=== PATIENT | male | born 1980 | race Caucasian/White ===

== ENCOUNTER 2018-05-02 06:22 | Inpatient (IN) | payer BC ==
[2018-05-02] MEDS: BUPIVACAINE 0.25% (MPF) 30 ML INJ
[2018-05-02] MEDS ORDERED: metroNIDAZOLE 500 MG/100 ML NS IVPB (07:00)
[2018-05-02] MEDS ORDERED: CEFAZOLIN 1 GM INJ ×2 (07:00→09:33)
[2018-05-02] MEDS ORDERED: ROCURONIUM 50 MG INJ ×3 (07:00→10:49)
[2018-05-02 08:29] LABS: ADD MAN DIFF? NO
[2018-05-02] MEDS ORDERED: Metronidazole 500 MG in NS 100 ML IVPB (08:30)
[2018-05-02] MEDS ORDERED: AMPICILLIN/SULB 3 GM/NS (PMX) 100 ML IVPB ×2 (08:30→13:30)
[2018-05-02 08:31] LABS: WHITE BLOOD COUNT 8.5 10^3/ul (4.8-10.8)
[2018-05-02 08:31] LABS: BASOPHIL # 0.1 10^3/ul (0.0-0.1); BASOPHILS % 0.7 % (0.0-2.0); EOSINOPHILS # 0.1 10^3/ul (0.0-0.5); EOSINOPHILS % 1.5 % (0.0-7.0); HEMATOCRIT 43.1 % (42.0-52.0); HEMOGLOBIN 14.6 g/dl (14.0-18.0); LYMPHOCYTES # 3.5 10^3/ul (0.8-2.9); LYMPHOCYTES % 41.2 % (15.0-51.0); MEAN CORPUSCULAR HEMOGLOBIN 29.2 pg (29.0-33.0); MEAN CORPUSCULAR HGB CONC 33.9 g/dl (32.0-37.0); MEAN CORPUSCULAR VOLUME 86.2 fl (82.0-101.0); MEAN PLATELET VOLUME 10.5 fl (7.4-10.4); MONOCYTE # 0.5 10^3/ul (0.3-0.9); MONOCYTES % 5.5 % (0.0-11.0); NEUTROPHIL # 4.3 10^3/ul (1.6-7.5); NEUTROPHILS % 50.7 % (39.0-77.0); PLATELET COUNT 275 10^3/UL (140-415); RED CELL DISTRIBUTION WIDTH 12.8 % (11.5-14.5)
[2018-05-02 08:52] LABS: ALANINE AMINOTRANSFERASE 35 IU/L (13-69); ALBUMIN 4.2 g/dl (3.3-4.9); ALBUMIN/GLOBULIN RATIO 1.07; ALKALINE PHOSPHATASE 80 IU/L (42-121); ANION GAP 13 (8-16); ASPARTATE AMINO TRANSFERASE 26 IU/L (15-46); BILIRUBIN,INDIRECT 1.1 mg/dl (0-1.1); BILIRUBIN,TOTAL 1.1 mg/dl (0.2-1.3); BLOOD UREA NITROGEN 13 mg/dl (7-20); CALCIUM 9.2 mg/dl (8.4-10.2); CARBON DIOXIDE 25 mmol/L (21-31); CHLORIDE 110 mmol/L (97-110); CREATININE 0.66 mg/dl (0.61-1.24); GLUCOSE 100 mg/dl (70-220); POTASSIUM 4.2 mmol/L (3.5-5.1); SODIUM 144 mmol/L (135-144); TOTAL PROTEIN 8.1 g/dl (6.1-8.1)
[2018-05-02 09:01] LABS: INR 0.96; PROTIME 12.9 Sec (11.9-14.9)
[2018-05-02 09:02] LABS: PARTIAL THROMBOPLASTIN TIME 33.7 Sec (25.0-35.0)
[2018-05-02] MEDS ORDERED: GLYCOPYRROLATE 0.4 MG INJ (09:33)
[2018-05-02] MEDS ORDERED: PROPOFOL 20 ML (09:33)
[2018-05-02] MEDS ORDERED: NEOSTIGMINE 3 MG/3 ML SYRINGE (09:33)
[2018-05-02] MEDS ORDERED: DEXAMETHASONE 4 MG/ML 1 ML INJ (09:34)
[2018-05-02] MEDS ORDERED: FENTAnyl 50 MCG/ML VIAL (09:34)
[2018-05-02] MEDS ORDERED: ONDANSETRON 4 MG INJ (09:34)
[2018-05-02] MEDS ORDERED: MIDAZOLAM 1 MG/ML 2 ML INJ (09:34)
[2018-05-02] MEDS ORDERED: BUPIVACAINE 0.75%/DEXT (SPINAL) 2 ML INJ (09:49)
[2018-05-02] MEDS ORDERED: EPINEPHrine 1 MG INJ (09:49)
[2018-05-02] MEDS ORDERED: morphine SULFATE/PF (10 MG/10 ML) INJ (09:49)
[2018-05-02] MEDS ORDERED: MEPERIDINE 25 MG INJ IV (12:00)
[2018-05-02] MEDS ORDERED: ZOLPIDEM 5 MG TAB PO ×2 (12:00)
[2018-05-02] MEDS ORDERED: NALBUPHINE HCL (10 MG/1 ML) INJ IV (12:00)
[2018-05-02] MEDS ORDERED: ONDANSETRON 4 MG INJ IV (12:00)
[2018-05-02] MEDS ORDERED: IPRATROPIUM (NEB) 0.5 MG/2.5 ML AMP HHN (12:00)
[2018-05-02] MEDS ORDERED: EPHEDrine SULFATE 50 MG/5 ML SYG IV (12:00)
[2018-05-02] MEDS ORDERED: ALBUTEROL 0.083% (NEB) 2.5 MG/3 ML AMP HHN (12:00)
[2018-05-02] MEDS ORDERED: LABETALOL HCL 20MG INJ IV (12:00)
[2018-05-02] MEDS ORDERED: TRIMETHOBENZAMIDE 100 MG/ML VIAL IM ×3 (12:00)
[2018-05-02] MEDS ORDERED: NALOXONE (0.4 MG/ML) INJ IV ×2 (12:00)
[2018-05-02] MEDS ORDERED: HYDROmorphONE 0.5 MG/0.5 ML SYG IV ×2 (12:00)
[2018-05-02] MEDS ORDERED: HYDROmorphONE 1 MG/5 ML IV SYRINGE IV (12:00)
[2018-05-02] MEDS ORDERED: MIDAZOLAM 1 MG/ML 2 ML INJ IV (12:00)
[2018-05-02] MEDS ORDERED: HYDROCODONE/APAP (5/325) TAB PO (12:00)
[2018-05-02] MEDS ORDERED: DIPHENHYDRAMINE 50 MG INJ IV ×3 (12:00)
[2018-05-02] MEDS ORDERED: FENTAnyl 50 MCG/ML VIAL IV ×3 (12:00)
[2018-05-02] MEDS ORDERED: hydrALAzine 20 MG INJ IV (12:00)
[2018-05-02] MEDS ORDERED: METHYLENE BLUE 1% 10 ML INJ (12:29)
[2018-05-02] MEDS ORDERED: SUGAMMADEX SODIUM 200 MG/2 ML VIAL IV (13:00)
[2018-05-02] MEDS ORDERED: METOCLOPRAMIDE 10 MG INJ (13:02)
[2018-05-02] MEDS: ONDANSETRON 4 MG INJ IV (13:44)
[2018-05-02] MEDS: HYDROmorphONE 1 MG/5 ML IV SYRINGE IV ×2 (13:44→13:53)
[2018-05-02] MEDS ORDERED: HYDROmorphONE 0.2 MG/ML PCA (13:58)
[2018-05-02] MEDS: HYDROmorphONE 0.2 MG/ML PCA IV (14:06)
[2018-05-02] MEDS: SOD CHLORIDE 0.9% 1,000 ML IV ×2 (14:07→23:19)
[2018-05-02] MEDS: metroNIDAZOLE 500 MG/NS (PMX) 100 ML IVPB ×2 (14:41→21:13)
[2018-05-02 15:36] LABS: ADD MAN DIFF? NO
[2018-05-02 15:38] LABS: BASOPHILS % 0.3 % (0.0-2.0); EOSINOPHILS % 0.1 % (0.0-7.0); HEMATOCRIT 39.9 % (42.0-52.0); HEMOGLOBIN 13.5 g/dl (14.0-18.0); LYMPHOCYTES % 7.8 % (15.0-51.0); MEAN CORPUSCULAR HEMOGLOBIN 29.3 pg (29.0-33.0); MEAN CORPUSCULAR HGB CONC 33.8 g/dl (32.0-37.0); MEAN CORPUSCULAR VOLUME 86.6 fl (82.0-101.0); MEAN PLATELET VOLUME 10.3 fl (7.4-10.4); MONOCYTE # 0.4 10^3/ul (0.3-0.9); MONOCYTES % 3.1 % (0.0-11.0); NEUTROPHIL # 11.8 10^3/ul (1.6-7.5); NEUTROPHILS % 88.3 % (39.0-77.0); PLATELET COUNT 264 10^3/UL (140-415); RED BLOOD COUNT 4.61 10^6/ul (4.70-6.10); RED CELL DISTRIBUTION WIDTH 12.8 % (11.5-14.5)
[2018-05-02 15:38] LABS: WHITE BLOOD COUNT 13.4 10^3/ul (4.8-10.8)
[2018-05-02 15:58] LABS: ALANINE AMINOTRANSFERASE 47 IU/L (13-69); ALBUMIN 3.7 g/dl (3.3-4.9); ALBUMIN/GLOBULIN RATIO 1.02; ALKALINE PHOSPHATASE 72 IU/L (42-121); ANION GAP 11 (8-16); ASPARTATE AMINO TRANSFERASE 41 IU/L (15-46); BILIRUBIN,INDIRECT 0.8 mg/dl (0-1.1); BILIRUBIN,TOTAL 0.8 mg/dl (0.2-1.3); BLOOD UREA NITROGEN 10 mg/dl (7-20); CALCIUM 8.1 mg/dl (8.4-10.2); CARBON DIOXIDE 24 mmol/L (21-31); CHLORIDE 107 mmol/L (97-110); CREATININE 0.61 mg/dl (0.61-1.24); GLUCOSE 130 mg/dl (70-220); SODIUM 138 mmol/L (135-144); TOTAL PROTEIN 7.3 g/dl (6.1-8.1)
[2018-05-02] MEDS: AMPICILLIN/SULB 3 GM/NS (PMX) 100 ML IVPB ×2 (17:24→21:13)
[2018-05-03] MEDS: SOD CHLORIDE 0.9% 1,000 ML IV ×3 (01:00→19:56)
[2018-05-03] MEDS: HYDROmorphONE 0.2 MG/ML PCA IV (01:06)
[2018-05-03] MEDS: AMPICILLIN/SULB 3 GM/NS (PMX) 100 ML IVPB ×2 (03:34→08:56)
[2018-05-03 05:15] LABS: ADD MAN DIFF? NO
[2018-05-03] MEDS: metroNIDAZOLE 500 MG/NS (PMX) 100 ML IVPB ×3 (05:15→21:30)
[2018-05-03 05:28] LABS: BASOPHILS % 0.1 % (0.0-2.0); EOSINOPHILS % 0.1 % (0.0-7.0); HEMATOCRIT 37.4 % (42.0-52.0); HEMOGLOBIN 12.7 g/dl (14.0-18.0); LYMPHOCYTES # 1.8 10^3/ul (0.8-2.9); LYMPHOCYTES % 14.2 % (15.0-51.0); MEAN CORPUSCULAR HEMOGLOBIN 29.5 pg (29.0-33.0); MEAN PLATELET VOLUME 10.7 fl (7.4-10.4); MONOCYTE # 0.7 10^3/ul (0.3-0.9); MONOCYTES % 5.2 % (0.0-11.0); NEUTROPHIL # 10.4 10^3/ul (1.6-7.5); NEUTROPHILS % 79.9 % (39.0-77.0); PLATELET COUNT 272 10^3/UL (140-415); RED CELL DISTRIBUTION WIDTH 12.4 % (11.5-14.5)
[2018-05-03 05:44] LABS: ALANINE AMINOTRANSFERASE 44 IU/L (13-69); ALBUMIN 3.7 g/dl (3.3-4.9); ALBUMIN/GLOBULIN RATIO 1.02; ALKALINE PHOSPHATASE 64 IU/L (42-121); ANION GAP 13 (8-16); ASPARTATE AMINO TRANSFERASE 26 IU/L (15-46); BILIRUBIN,INDIRECT 1.4 mg/dl (0-1.1); BILIRUBIN,TOTAL 1.4 mg/dl (0.2-1.3); BLOOD UREA NITROGEN 8 mg/dl (7-20); CALCIUM 8.6 mg/dl (8.4-10.2); CARBON DIOXIDE 26 mmol/L (21-31); CHLORIDE 105 mmol/L (97-110); CREATININE 0.62 mg/dl (0.61-1.24); GLUCOSE 133 mg/dl (70-220); POTASSIUM 4.1 mmol/L (3.5-5.1); SODIUM 140 mmol/L (135-144); TOTAL PROTEIN 7.3 g/dl (6.1-8.1)
[2018-05-03] MEDS: ONDANSETRON 4 MG INJ IV (17:56)
[2018-05-04] MEDS: HYDROmorphONE 0.2 MG/ML PCA IV (05:01)
[2018-05-04] MEDS: SOD CHLORIDE 0.9% 1,000 ML IV ×2 (05:19→15:45)
[2018-05-04] MEDS: metroNIDAZOLE 500 MG/NS (PMX) 100 ML IVPB ×3 (05:25→21:18)
[2018-05-04] MEDS: ONDANSETRON 4 MG INJ IV (15:30)
[2018-05-04] MEDS: KETOROLAC 30 MG INJ IV (15:30)
[2018-05-05] MEDS: SOD CHLORIDE 0.9% 1,000 ML IV (01:52)
[2018-05-05] MEDS: metroNIDAZOLE 500 MG/NS (PMX) 100 ML IVPB ×3 (05:30→21:29)
[2018-05-05 06:11] LABS: ADD MAN DIFF? NO
[2018-05-05 06:21] LABS: BASOPHIL # 0.1 10^3/ul (0.0-0.1); BASOPHILS % 0.6 % (0.0-2.0); EOSINOPHILS # 0.2 10^3/ul (0.0-0.5); EOSINOPHILS % 1.5 % (0.0-7.0); HEMOGLOBIN 13.5 g/dl (14.0-18.0); LYMPHOCYTES # 2.6 10^3/ul (0.8-2.9); LYMPHOCYTES % 24.7 % (15.0-51.0); MEAN CORPUSCULAR HEMOGLOBIN 29.1 pg (29.0-33.0); MEAN CORPUSCULAR HGB CONC 33.8 g/dl (32.0-37.0); MEAN CORPUSCULAR VOLUME 86.2 fl (82.0-101.0); MEAN PLATELET VOLUME 10.6 fl (7.4-10.4); MONOCYTE # 0.7 10^3/ul (0.3-0.9); MONOCYTES % 6.3 % (0.0-11.0); NEUTROPHIL # 6.9 10^3/ul (1.6-7.5); NEUTROPHILS % 66.4 % (39.0-77.0); PLATELET COUNT 299 10^3/UL (140-415); RED BLOOD COUNT 4.64 10^6/ul (4.70-6.10); RED CELL DISTRIBUTION WIDTH 12.5 % (11.5-14.5)
[2018-05-05 06:21] LABS: WHITE BLOOD COUNT 10.3 10^3/ul (4.8-10.8)
[2018-05-05 07:01] LABS: ANION GAP 14 (8-16); BLOOD UREA NITROGEN 10 mg/dl (7-20); CALCIUM 8.8 mg/dl (8.4-10.2); CARBON DIOXIDE 26 mmol/L (21-31); CHLORIDE 104 mmol/L (97-110); CREATININE 0.68 mg/dl (0.61-1.24); GLUCOSE 105 mg/dl (70-220); POTASSIUM 3.6 mmol/L (3.5-5.1); SODIUM 140 mmol/L (135-144)
[2018-05-05] MEDS: ONDANSETRON 4 MG INJ IV (19:00)
[2018-05-05] MEDS: HYDROmorphONE 0.2 MG/ML PCA IV (21:12)
[2018-05-06] MEDS: metroNIDAZOLE 500 MG/NS (PMX) 100 ML IVPB (05:11)
[2018-05-06 05:19] LABS: ADD MAN DIFF? NO
[2018-05-06 05:23] LABS: BASOPHIL # 0.1 10^3/ul (0.0-0.1); BASOPHILS % 0.7 % (0.0-2.0); EOSINOPHILS # 0.3 10^3/ul (0.0-0.5); EOSINOPHILS % 2.8 % (0.0-7.0); HEMOGLOBIN 13.8 g/dl (14.0-18.0); LYMPHOCYTES # 3.2 10^3/ul (0.8-2.9); LYMPHOCYTES % 29.6 % (15.0-51.0); MEAN CORPUSCULAR HEMOGLOBIN 29.4 pg (29.0-33.0); MEAN CORPUSCULAR HGB CONC 34.5 g/dl (32.0-37.0); MEAN CORPUSCULAR VOLUME 85.3 fl (82.0-101.0); MEAN PLATELET VOLUME 10.1 fl (7.4-10.4); MONOCYTE # 0.6 10^3/ul (0.3-0.9); MONOCYTES % 5.5 % (0.0-11.0); NEUTROPHIL # 6.6 10^3/ul (1.6-7.5); NEUTROPHILS % 60.8 % (39.0-77.0); PLATELET COUNT 310 10^3/UL (140-415); RED BLOOD COUNT 4.69 10^6/ul (4.70-6.10); RED CELL DISTRIBUTION WIDTH 12.4 % (11.5-14.5)
[2018-05-06 05:23] LABS: WHITE BLOOD COUNT 10.9 10^3/ul (4.8-10.8)
[2018-05-06 05:39] LABS: ANION GAP 13 (8-16); BLOOD UREA NITROGEN 10 mg/dl (7-20); CALCIUM 8.9 mg/dl (8.4-10.2); CARBON DIOXIDE 25 mmol/L (21-31); CHLORIDE 104 mmol/L (97-110); CREATININE 0.71 mg/dl (0.61-1.24); GLUCOSE 105 mg/dl (70-220); POTASSIUM 3.6 mmol/L (3.5-5.1); SODIUM 138 mmol/L (135-144)
[2018-05-06] MEDS: KETOROLAC 30 MG INJ IV (13:03)
[2018-05-06] MEDS: BETHANECHOL 25 MG TAB PO ×2 (14:56→20:25)
[2018-05-06] MEDS: HYDROCODONE/APAP (5/325) TAB PO (18:53)
[2018-05-07] MEDS: HYDROCODONE/APAP (5/325) TAB PO ×2 (05:26→13:13)
[2018-05-07 05:40] LABS: ADD MAN DIFF? NO
[2018-05-07 05:42] LABS: BASOPHIL # 0.1 10^3/ul (0.0-0.1); BASOPHILS % 0.5 % (0.0-2.0); EOSINOPHILS # 0.5 10^3/ul (0.0-0.5); EOSINOPHILS % 3.5 % (0.0-7.0); HEMATOCRIT 40.7 % (42.0-52.0); HEMOGLOBIN 14.3 g/dl (14.0-18.0); LYMPHOCYTES # 3.5 10^3/ul (0.8-2.9); LYMPHOCYTES % 24.3 % (15.0-51.0); MEAN CORPUSCULAR HEMOGLOBIN 29.2 pg (29.0-33.0); MEAN CORPUSCULAR HGB CONC 35.1 g/dl (32.0-37.0); MEAN CORPUSCULAR VOLUME 83.2 fl (82.0-101.0); MEAN PLATELET VOLUME 10.1 fl (7.4-10.4); MONOCYTE # 0.8 10^3/ul (0.3-0.9); MONOCYTES % 5.5 % (0.0-11.0); NEUTROPHIL # 9.3 10^3/ul (1.6-7.5); NEUTROPHILS % 65.5 % (39.0-77.0); PLATELET COUNT 347 10^3/UL (140-415); RED BLOOD COUNT 4.89 10^6/ul (4.70-6.10); RED CELL DISTRIBUTION WIDTH 12.6 % (11.5-14.5)
[2018-05-07 05:42] LABS: WHITE BLOOD COUNT 14.2 10^3/ul (4.8-10.8)
[2018-05-07 06:13] LABS: ANION GAP 16 (8-16); BLOOD UREA NITROGEN 11 mg/dl (7-20); CALCIUM 9.3 mg/dl (8.4-10.2); CARBON DIOXIDE 25 mmol/L (21-31); CHLORIDE 102 mmol/L (97-110); CREATININE 0.73 mg/dl (0.61-1.24); GLUCOSE 115 mg/dl (70-220); POTASSIUM 3.6 mmol/L (3.5-5.1); SODIUM 139 mmol/L (135-144)
[2018-05-07 10:59] LABS: ALANINE AMINOTRANSFERASE 37 IU/L (13-69); ALBUMIN 4.3 g/dl (3.3-4.9); ALKALINE PHOSPHATASE 84 IU/L (42-121); ASPARTATE AMINO TRANSFERASE 35 IU/L (15-46); BILIRUBIN,INDIRECT 0.8 mg/dl (0-1.1); BILIRUBIN,TOTAL 0.8 mg/dl (0.2-1.3); TOTAL PROTEIN 7.8 g/dl (6.1-8.1)
== END 2018-05-07 17:05 | disposition home or self-care (01) | DRG 330 ==
LOC: REC 06:22 → MS1 15:08
PROC: 0DTG4ZZ Resection of Left Large Intestine, Percutaneous Endoscopic Approach (ICD-10-PCS; principal; 2018-05-02 09:30)
PROC: 0DNN4ZZ Release Sigmoid Colon, Percutaneous Endoscopic Approach (ICD-10-PCS; 2018-05-02 09:30)
DX: K57.32 Diverticulitis of large intestine without perforation or abscess without bleeding (principal); Z68.41 Body mass index [BMI] 40.0-44.9, adult; E66.01 Morbid (severe) obesity due to excess calories; K66.0 Peritoneal adhesions (postprocedural) (postinfection); R33.9 Retention of urine, unspecified
CPT/HCPCS: 80048; 80053; 80076; 85025; 85610; 85730; 87086; 88304

== ENCOUNTER 2018-05-11 22:28 | Emergency (ER) | payer BC ==
[2018-05-11 23:27] LABS: ADD MAN DIFF? NO
[2018-05-11 23:29] LABS: WHITE BLOOD COUNT 15.2 10^3/ul (4.8-10.8)
[2018-05-11 23:29] LABS: BASOPHIL # 0.1 10^3/ul (0.0-0.1); BASOPHILS % 0.7 % (0.0-2.0); EOSINOPHILS # 0.6 10^3/ul (0.0-0.5); EOSINOPHILS % 3.7 % (0.0-7.0); HEMATOCRIT 41.4 % (42.0-52.0); LYMPHOCYTES # 3.3 10^3/ul (0.8-2.9); LYMPHOCYTES % 21.4 % (15.0-51.0); MEAN CORPUSCULAR HEMOGLOBIN 28.9 pg (29.0-33.0); MEAN CORPUSCULAR HGB CONC 33.8 g/dl (32.0-37.0); MEAN CORPUSCULAR VOLUME 85.5 fl (82.0-101.0); MEAN PLATELET VOLUME 9.7 fl (7.4-10.4); MONOCYTE # 0.7 10^3/ul (0.3-0.9); MONOCYTES % 4.6 % (0.0-11.0); NEUTROPHIL # 10.5 10^3/ul (1.6-7.5); NEUTROPHILS % 68.9 % (39.0-77.0); PLATELET COUNT 426 10^3/UL (140-415); RED BLOOD COUNT 4.84 10^6/ul (4.70-6.10); RED CELL DISTRIBUTION WIDTH 12.6 % (11.5-14.5)
[2018-05-11 23:44] LABS: ADD UMIC YES; UR ASCORBIC ACID NEGATIVE (NEGATIVE); UR BACTERIA MANY /HPF (NONE SEEN); UR BILIRUBIN (Dip) NEGATIVE (NEGATIVE); UR BLOOD (Dip) 3+ mg/dL (NEGATIVE); UR CLARITY CLOUDY (CLEAR); UR COLOR YELLOW (YELLOW); UR GLUCOSE (Dip) NEGATIVE (NEGATIVE); UR KETONES (Dip) NEGATIVE (NEGATIVE); UR LEUKOCYTE ESTERASE (Dip) 3+ Leu/ul (NEGATIVE); UR MUCUS FEW /HPF (NONE SEEN); UR NITRITE (Dip) POSITIVE (NEGATIVE); UR RBC 108 /HPF (0-5); UR SPECIFIC GRAVITY (Dip) 1.015 (1.003-1.030); UR SQUAMOUS EPITHELIAL CELL FEW /HPF (FEW); UR TOTAL PROTEIN (Dip) 2+ mg/dl (NEGATIVE); UR UROBILINOGEN (Dip) NEGATIVE (NEGATIVE); UR WBC > 182 /HPF (0-5)
[2018-05-11 23:49] LABS: ALANINE AMINOTRANSFERASE 46 IU/L (13-69); ALBUMIN 4.6 g/dl (3.3-4.9); ALBUMIN/GLOBULIN RATIO 1.24; ALKALINE PHOSPHATASE 81 IU/L (42-121); ANION GAP 14 (8-16); ASPARTATE AMINO TRANSFERASE 33 IU/L (15-46); BILIRUBIN,INDIRECT 0.2 mg/dl (0-1.1); BILIRUBIN,TOTAL 0.2 mg/dl (0.2-1.3); BLOOD UREA NITROGEN 12 mg/dl (7-20); CALCIUM 9.8 mg/dl (8.4-10.2); CARBON DIOXIDE 25 mmol/L (21-31); CHLORIDE 104 mmol/L (97-110); CREATININE 0.78 mg/dl (0.61-1.24); GLUCOSE 163 mg/dl (70-220); LIPASE 47 U/L (23-300); POTASSIUM 3.9 mmol/L (3.5-5.1); SODIUM 139 mmol/L (135-144); TOTAL PROTEIN 8.3 g/dl (6.1-8.1)
[2018-05-12] MEDS: CEFTRIAXONE 1 GM INJ IM (00:22)
== END 2018-05-12 00:46 | disposition home or self-care (01) ==
LOC: FTE 05-12 00:46
DX: N30.90 Cystitis, unspecified without hematuria (principal)
CPT/HCPCS: 80053; 81001; 83690; 85025; 87086; 96372; 99285-25

== ENCOUNTER 2019-02-13 10:07 | Inpatient (IN) | payer BC ==
[2019-02-13] MEDS: CEFAZOLIN 2 GM/50 ML (PMX) 50 ML IVPB (06:00)
[2019-02-13] MEDS: SOD CHLORIDE 0.9% 1,000 ML IV ×3 (06:00→19:20)
[~2019-02-13 10:07] MED LIST: CEFAZOLIN 1 GM INJ; DESFLURANE 15 MIN; LIDOCAINE 2% (SDV) 5 ML INJ; SUCCINYLCHOLINE CHLORIDE 100 MG/5 ML SYG IV
[2019-02-13 13:09] LABS: ADD MAN DIFF? NO
[2019-02-13 13:11] LABS: BASOPHIL # 0.1 10^3/ul (0.0-0.1); BASOPHILS % 0.7 % (0.0-2.0); EOSINOPHILS # 0.2 10^3/ul (0.0-0.5); EOSINOPHILS % 2.2 % (0.0-7.0); HEMATOCRIT 44.6 % (42.0-52.0); HEMOGLOBIN 15.2 g/dl (14.0-18.0); LYMPHOCYTES # 4.1 10^3/ul (0.8-2.9); LYMPHOCYTES % 42.3 % (15.0-51.0); MEAN CORPUSCULAR HEMOGLOBIN 29.7 pg (29.0-33.0); MEAN CORPUSCULAR HGB CONC 34.1 g/dl (32.0-37.0); MEAN CORPUSCULAR VOLUME 87.3 fl (82.0-101.0); MEAN PLATELET VOLUME 10.4 fl (7.4-10.4); MONOCYTE # 0.6 10^3/ul (0.3-0.9); MONOCYTES % 5.7 % (0.0-11.0); NEUTROPHIL # 4.7 10^3/ul (1.6-7.5); NEUTROPHILS % 48.5 % (39.0-77.0); PLATELET COUNT 296 10^3/UL (140-415); RED BLOOD COUNT 5.11 10^6/ul (4.70-6.10); RED CELL DISTRIBUTION WIDTH 12.1 % (11.5-14.5)
[2019-02-13 13:11] LABS: WHITE BLOOD COUNT 9.6 10^3/ul (4.8-10.8)
[2019-02-13] MEDS ORDERED: PROPOFOL 20 ML (13:14)
[2019-02-13] MEDS ORDERED: CEFAZOLIN 1 GM INJ (13:14)
[2019-02-13] MEDS ORDERED: ONDANSETRON 4 MG INJ (13:14)
[2019-02-13] MEDS ORDERED: FENTAnyl 50 MCG/ML VIAL ×2 (13:14→15:56)
[2019-02-13] MEDS ORDERED: DEXAMETHASONE 4 MG/ML 5 ML INJ (13:14)
[2019-02-13] MEDS ORDERED: NEOSTIGMINE 3 MG/3 ML SYRINGE (13:14)
[2019-02-13] MEDS ORDERED: ROCURONIUM 50 MG INJ (13:14)
[2019-02-13] MEDS ORDERED: GLYCOPYRROLATE 0.4 MG INJ (13:14)
[2019-02-13] MEDS ORDERED: MIDAZOLAM 1 MG/ML 2 ML INJ (13:14)
[2019-02-13] MEDS ORDERED: morphine SULFATE/PF (10 MG/10 ML) INJ (13:20)
[2019-02-13] MEDS ORDERED: NALBUPHINE HCL (10 MG/1 ML) INJ IV (13:30)
[2019-02-13] MEDS ORDERED: DIPHENHYDRAMINE 50 MG INJ IV ×2 (13:30)
[2019-02-13] MEDS ORDERED: NALOXONE (0.4 MG/ML) INJ IV ×2 (13:30→16:30)
[2019-02-13] MEDS ORDERED: TRIMETHOBENZAMIDE 100 MG/ML VIAL IM ×2 (13:30)
[2019-02-13] MEDS ORDERED: IPRATROPIUM (NEB) 0.5 MG/2.5 ML AMP HHN (13:30)
[2019-02-13] MEDS ORDERED: HYDROmorphONE 1 MG/5 ML IV SYRINGE IV (13:30)
[2019-02-13] MEDS ORDERED: EPHEDrine SULFATE 50 MG/5 ML SYG IV (13:30)
[2019-02-13] MEDS ORDERED: MIDAZOLAM 1 MG/ML 2 ML INJ IV (13:30)
[2019-02-13] MEDS ORDERED: FENTAnyl 50 MCG/ML VIAL IV ×3 (13:30)
[2019-02-13] MEDS ORDERED: HYDROmorphONE 0.5 MG/0.5 ML SYG IV ×2 (13:30)
[2019-02-13] MEDS ORDERED: ALBUTEROL 0.083% (NEB) 2.5 MG/3 ML AMP HHN (13:30)
[2019-02-13] MEDS ORDERED: MEPERIDINE 25 MG INJ IV (13:30)
[2019-02-13] MEDS ORDERED: KETOROLAC 30 MG INJ IV (13:30)
[2019-02-13] MEDS ORDERED: OXYCODONE/ACETAMINOPHEN (5/325) TAB PO ×2 (13:30)
[2019-02-13] MEDS ORDERED: hydrALAzine 20 MG INJ IV (13:30)
[2019-02-13 13:31] LABS: ALBUMIN/GLOBULIN RATIO 1.17; ANION GAP 15 (5-13); BILIRUBIN,TOTAL 1.3 mg/dl (0.2-1.3); Estimated GFR > 60 mL/min (>60)
[2019-02-13 13:32] LABS: INR 0.97
[2019-02-13 13:33] LABS: ALANINE AMINOTRANSFERASE 47 IU/L (13-69); ALBUMIN 4.6 g/dl (3.3-4.9); ALKALINE PHOSPHATASE 98 IU/L (42-121); ASPARTATE AMINO TRANSFERASE 33 IU/L (15-46); BILIRUBIN,INDIRECT 1.3 mg/dl (0-1.1); BLOOD UREA NITROGEN 12 mg/dl (7-20); CALCIUM 9.9 mg/dl (8.4-10.2); CARBON DIOXIDE 26 mmol/L (21-31); CHLORIDE 101 mmol/L (97-110); CREATININE 0.66 mg/dl (0.61-1.24); GLUCOSE 163 mg/dl (70-220); POTASSIUM 3.9 mmol/L (3.5-5.1); SODIUM 142 mmol/L (135-144); TOTAL PROTEIN 8.5 g/dl (6.1-8.1)
[2019-02-13] MEDS ORDERED: SUGAMMADEX SODIUM 200 MG/2 ML VIAL IV (16:04)
[2019-02-13] MEDS: HYDROmorphONE 1 MG/5 ML IV SYRINGE IV ×2 (16:45→17:20)
[2019-02-13] MEDS: ONDANSETRON 4 MG INJ IV (16:45)
[2019-02-13] MEDS: LABETALOL HCL 20MG INJ IV (16:46)
[2019-02-13] MEDS ORDERED: AMPICILLIN/SULB 3 GM/NS (PMX) 100 ML IVPB (17:00)
[2019-02-13] MEDS: HYDROmorphONE 0.2 MG/ML PCA IV (17:06)
[2019-02-13 19:20] LABS: ADD MAN DIFF? NO
[2019-02-13 19:22] LABS: BASOPHILS % 0.3 % (0.0-2.0); EOSINOPHILS % 0.1 % (0.0-7.0); HEMATOCRIT 40.9 % (42.0-52.0); HEMOGLOBIN 13.8 g/dl (14.0-18.0); LYMPHOCYTES # 1.1 10^3/ul (0.8-2.9); LYMPHOCYTES % 9.2 % (15.0-51.0); MEAN CORPUSCULAR HEMOGLOBIN 29.6 pg (29.0-33.0); MEAN CORPUSCULAR HGB CONC 33.7 g/dl (32.0-37.0); MEAN CORPUSCULAR VOLUME 87.8 fl (82.0-101.0); MEAN PLATELET VOLUME 10.6 fl (7.4-10.4); MONOCYTE # 0.4 10^3/ul (0.3-0.9); MONOCYTES % 3.6 % (0.0-11.0); NEUTROPHIL # 10.5 10^3/ul (1.6-7.5); NEUTROPHILS % 86.3 % (39.0-77.0); PLATELET COUNT 263 10^3/UL (140-415); RED BLOOD COUNT 4.66 10^6/ul (4.70-6.10); RED CELL DISTRIBUTION WIDTH 12.2 % (11.5-14.5)
[2019-02-13 19:22] LABS: WHITE BLOOD COUNT 12.1 10^3/ul (4.8-10.8)
[2019-02-13 19:42] LABS: ALANINE AMINOTRANSFERASE 66 IU/L (13-69); ALBUMIN 4.1 g/dl (3.3-4.9); ALBUMIN/GLOBULIN RATIO 1.32; ALKALINE PHOSPHATASE 81 IU/L (42-121); ANION GAP 14 (5-13); ASPARTATE AMINO TRANSFERASE 68 IU/L (15-46); BILIRUBIN,INDIRECT 0.9 mg/dl (0-1.1); BILIRUBIN,TOTAL 0.9 mg/dl (0.2-1.3); BLOOD UREA NITROGEN 10 mg/dl (7-20); CALCIUM 8.9 mg/dl (8.4-10.2); CARBON DIOXIDE 24 mmol/L (21-31); CHLORIDE 99 mmol/L (97-110); CREATININE 0.53 mg/dl (0.61-1.24); Estimated GFR > 60 mL/min (>60); GLUCOSE 229 mg/dl (70-220); SODIUM 137 mmol/L (135-144); TOTAL PROTEIN 7.2 g/dl (6.1-8.1)
[2019-02-13] MEDS: metroNIDAZOLE 500 MG/NS (PMX) 100 ML IVPB (20:25)
[2019-02-13] MEDS: AMPICILLIN/SULB 3 GM/NS (PMX) 100 ML IVPB (21:58)
[2019-02-14] MEDS: SOD CHLORIDE 0.9% 1,000 ML IV ×3 (02:41→16:53)
[2019-02-14] MEDS: metroNIDAZOLE 500 MG/NS (PMX) 100 ML IVPB ×2 (02:41→11:07)
[2019-02-14] MEDS: AMPICILLIN/SULB 3 GM/NS (PMX) 100 ML IVPB ×3 (04:11→15:27)
[2019-02-14 05:14] LABS: ADD MAN DIFF? NO
[2019-02-14 05:18] LABS: BASOPHILS % 0.3 % (0.0-2.0); HEMATOCRIT 37.8 % (42.0-52.0); HEMOGLOBIN 12.9 g/dl (14.0-18.0); LYMPHOCYTES # 1.7 10^3/ul (0.8-2.9); LYMPHOCYTES % 10.8 % (15.0-51.0); MEAN CORPUSCULAR HEMOGLOBIN 29.7 pg (29.0-33.0); MEAN CORPUSCULAR HGB CONC 34.1 g/dl (32.0-37.0); MEAN CORPUSCULAR VOLUME 86.9 fl (82.0-101.0); MEAN PLATELET VOLUME 10.8 fl (7.4-10.4); MONOCYTE # 1.1 10^3/ul (0.3-0.9); MONOCYTES % 6.8 % (0.0-11.0); NEUTROPHILS % 81.3 % (39.0-77.0); PLATELET COUNT 252 10^3/UL (140-415); RED BLOOD COUNT 4.35 10^6/ul (4.70-6.10); RED CELL DISTRIBUTION WIDTH 11.9 % (11.5-14.5)
[2019-02-14 05:29] LABS: HEMOGLOBIN A1C 8.2 % (0-5.9)
[2019-02-14 05:38] LABS: ALANINE AMINOTRANSFERASE 57 IU/L (13-69); ALBUMIN 4.1 g/dl (3.3-4.9); ALBUMIN/GLOBULIN RATIO 1.32; ALKALINE PHOSPHATASE 74 IU/L (42-121); ANION GAP 11 (5-13); ASPARTATE AMINO TRANSFERASE 37 IU/L (15-46); BILIRUBIN,INDIRECT 1.4 mg/dl (0-1.1); BILIRUBIN,TOTAL 1.4 mg/dl (0.2-1.3); BLOOD UREA NITROGEN 7 mg/dl (7-20); CARBON DIOXIDE 26 mmol/L (21-31); CHLORIDE 98 mmol/L (97-110); Estimated GFR > 60 mL/min (>60); GLUCOSE 217 mg/dl (70-220); POTASSIUM 4.2 mmol/L (3.5-5.1); SODIUM 135 mmol/L (135-144); TOTAL PROTEIN 7.2 g/dl (6.1-8.1)
[2019-02-14] MEDS ORDERED: GLUCOSE GEL 15 GRAM TUBE BUCCAL (10:00)
[2019-02-14] MEDS ORDERED: GLUCOSE GEL 15 GRAM TUBE PO ×2 (10:00)
[2019-02-14] MEDS ORDERED: GLUCAGON 1 MG INJ IM (10:00)
[2019-02-14] MEDS ORDERED: DEXTROSE 50% 50 ML SYRINGE IV ×2 (10:00)
[2019-02-14] MEDS: INSULIN ASPART [NOVOLOG] 3 ML PEN SC (13:16)
[2019-02-14] MEDS ORDERED: INSULIN ASPART [NOVOLOG] 3 ML PEN SC (18:00)
[2019-02-14] MEDS: HYDROmorphONE 0.2 MG/ML PCA IV (18:19)
[2019-02-14] MEDS: Insulin NOVOLOG SS MODERATE Algorithm(NPO/TPN/ENTERAL FEEDS) SC (18:20)
[2019-02-15] MEDS: ACCUCHECK AT 2AM (Patients on SS coverage) XX (02:00)
[2019-02-15] MEDS: SOD CHLORIDE 0.9% 1,000 ML IV ×2 (03:24→13:38)
[2019-02-15 05:00] LABS: ADD MAN DIFF? NO
[2019-02-15 05:02] LABS: WHITE BLOOD COUNT 12.2 10^3/ul (4.8-10.8)
[2019-02-15 05:02] LABS: BASOPHIL # 0.1 10^3/ul (0.0-0.1); BASOPHILS % 0.4 % (0.0-2.0); EOSINOPHILS # 0.2 10^3/ul (0.0-0.5); HEMATOCRIT 39.1 % (42.0-52.0); HEMOGLOBIN 12.8 g/dl (14.0-18.0); LYMPHOCYTES % 16.3 % (15.0-51.0); MEAN CORPUSCULAR HGB CONC 32.7 g/dl (32.0-37.0); MEAN CORPUSCULAR VOLUME 88.7 fl (82.0-101.0); MEAN PLATELET VOLUME 10.5 fl (7.4-10.4); MONOCYTE # 0.7 10^3/ul (0.3-0.9); MONOCYTES % 5.9 % (0.0-11.0); NEUTROPHIL # 9.1 10^3/ul (1.6-7.5); NEUTROPHILS % 74.6 % (39.0-77.0); PLATELET COUNT 233 10^3/UL (140-415); RED BLOOD COUNT 4.41 10^6/ul (4.70-6.10)
[2019-02-15 05:41] LABS: ANION GAP 11 (5-13); BLOOD UREA NITROGEN 8 mg/dl (7-20); CALCIUM 8.8 mg/dl (8.4-10.2); CARBON DIOXIDE 30 mmol/L (21-31); CHLORIDE 97 mmol/L (97-110); CREATININE 0.61 mg/dl (0.61-1.24); Estimated GFR > 60 mL/min (>60); GLUCOSE 172 mg/dl (70-220); POTASSIUM 3.8 mmol/L (3.5-5.1); SODIUM 138 mmol/L (135-144)
[2019-02-15] MEDS: Insulin NOVOLOG SS MODERATE Algorithm(NPO/TPN/ENTERAL FEEDS) SC ×4 (06:28→18:00)
[2019-02-15] MEDS: HYDROmorphONE 0.2 MG/ML PCA IV (16:42)
[2019-02-15] MEDS: D5-NS + KCL 20 MEQ 1,000 ML IV (19:33)
[2019-02-16] MEDS: Insulin NOVOLOG SS MODERATE Algorithm(NPO/TPN/ENTERAL FEEDS) SC ×4 (00:32→17:50)
[2019-02-16] MEDS: ACCUCHECK AT 2AM (Patients on SS coverage) XX (01:39)
[2019-02-16] MEDS: D5-NS + KCL 20 MEQ 1,000 ML IV ×2 (05:13→16:47)
[2019-02-16] MEDS: HYDROmorphONE 0.2 MG/ML PCA IV ×2 (10:46→23:57)
[2019-02-16 12:04] LABS: ADD MAN DIFF? NO
[2019-02-16 12:15] LABS: WHITE BLOOD COUNT 10.2 10^3/ul (4.8-10.8)
[2019-02-16 12:15] LABS: BASOPHIL # 0.1 10^3/ul (0.0-0.1); BASOPHILS % 0.6 % (0.0-2.0); EOSINOPHILS # 0.4 10^3/ul (0.0-0.5); EOSINOPHILS % 3.5 % (0.0-7.0); HEMATOCRIT 40.9 % (42.0-52.0); HEMOGLOBIN 13.9 g/dl (14.0-18.0); LYMPHOCYTES # 2.4 10^3/ul (0.8-2.9); LYMPHOCYTES % 23.6 % (15.0-51.0); MEAN CORPUSCULAR HEMOGLOBIN 29.7 pg (29.0-33.0); MEAN CORPUSCULAR VOLUME 87.4 fl (82.0-101.0); MEAN PLATELET VOLUME 10.3 fl (7.4-10.4); MONOCYTE # 0.7 10^3/ul (0.3-0.9); MONOCYTES % 6.5 % (0.0-11.0); NEUTROPHIL # 6.6 10^3/ul (1.6-7.5); NEUTROPHILS % 64.7 % (39.0-77.0); PLATELET COUNT 277 10^3/UL (140-415); RED BLOOD COUNT 4.68 10^6/ul (4.70-6.10)
[2019-02-16 12:25] LABS: ANION GAP 10 (5-13); BLOOD UREA NITROGEN 7 mg/dl (7-20); CALCIUM 9.2 mg/dl (8.4-10.2); CARBON DIOXIDE 30 mmol/L (21-31); CHLORIDE 97 mmol/L (97-110); CREATININE 0.68 mg/dl (0.61-1.24); Estimated GFR > 60 mL/min (>60); GLUCOSE 173 mg/dl (70-220); POTASSIUM 3.9 mmol/L (3.5-5.1); SODIUM 137 mmol/L (135-144)
[2019-02-17] MEDS: Insulin NOVOLOG SS MODERATE Algorithm(NPO/TPN/ENTERAL FEEDS) SC ×4 (00:14→17:59)
[2019-02-17] MEDS: ACCUCHECK AT 2AM (Patients on SS coverage) XX (02:00)
[2019-02-17] MEDS: D5-NS + KCL 20 MEQ 1,000 ML IV ×3 (03:33→17:52)
[2019-02-17] MEDS: ONDANSETRON 4 MG INJ IV (09:16)
[2019-02-17] MEDS: HYDROmorphONE 0.2 MG/ML PCA IV (10:56)
[2019-02-18] MEDS: HYDROmorphONE 0.2 MG/ML PCA IV ×2 (01:05→10:22)
[2019-02-18] MEDS: ACCUCHECK AT 2AM (Patients on SS coverage) XX (02:00)
[2019-02-18] MEDS: D5-NS + KCL 20 MEQ 1,000 ML IV (03:40)
[2019-02-18] MEDS: Insulin NOVOLOG SS MODERATE Algorithm(NPO/TPN/ENTERAL FEEDS) SC ×2 (06:00)
[2019-02-18] MEDS: INSULIN ASPART [NOVOLOG] 3 ML PEN SC ×4 (08:34→21:00)
[2019-02-18] MEDS: HYDROCODONE/APAP (5/325) TAB PO ×2 (13:56→18:00)
[2019-02-18] MEDS: morphine 2 MG INJ IV (17:01)
[2019-02-19] MEDS: HYDROCODONE/APAP (5/325) TAB PO ×4 (01:35→14:20)
[2019-02-19] MEDS: ACCUCHECK AT 2AM (Patients on SS coverage) XX (02:00)
[2019-02-19] MEDS: INSULIN ASPART [NOVOLOG] 3 ML PEN SC ×4 (07:50→20:43)
[2019-02-19] MEDS: ONDANSETRON 4 MG TAB PO (17:07)
[2019-02-20] MEDS: ACCUCHECK AT 2AM (Patients on SS coverage) XX (02:00)
[2019-02-20] MEDS: HYDROCODONE/APAP (5/325) TAB PO ×4 (02:54→19:32)
[2019-02-20] MEDS: INSULIN ASPART [NOVOLOG] 3 ML PEN SC ×4 (09:25→21:00)
[2019-02-21] MEDS: ACCUCHECK AT 2AM (Patients on SS coverage) XX (02:00)
[2019-02-21] MEDS: HYDROCODONE/APAP (5/325) TAB PO ×3 (06:20→21:05)
[2019-02-21] MEDS: INSULIN ASPART [NOVOLOG] 3 ML PEN SC ×4 (08:58→21:00)
[2019-02-21 14:50] LABS: ADD MAN DIFF? NO
[2019-02-21 14:55] LABS: BASOPHIL # 0.1 10^3/ul (0.0-0.1); BASOPHILS % 0.9 % (0.0-2.0); EOSINOPHILS # 0.6 10^3/ul (0.0-0.5); EOSINOPHILS % 4.1 % (0.0-7.0); HEMATOCRIT 42.7 % (42.0-52.0); HEMOGLOBIN 14.6 g/dl (14.0-18.0); LYMPHOCYTES # 3.7 10^3/ul (0.8-2.9); LYMPHOCYTES % 28.1 % (15.0-51.0); MEAN CORPUSCULAR HEMOGLOBIN 29.3 pg (29.0-33.0); MEAN CORPUSCULAR HGB CONC 34.2 g/dl (32.0-37.0); MEAN CORPUSCULAR VOLUME 85.6 fl (82.0-101.0); MEAN PLATELET VOLUME 9.8 fl (7.4-10.4); MONOCYTE # 0.6 10^3/ul (0.3-0.9); MONOCYTES % 4.7 % (0.0-11.0); NEUTROPHILS % 60.2 % (39.0-77.0); PLATELET COUNT 437 10^3/UL (140-415); RED BLOOD COUNT 4.99 10^6/ul (4.70-6.10); RED CELL DISTRIBUTION WIDTH 12.2 % (11.5-14.5)
[2019-02-21 14:55] LABS: WHITE BLOOD COUNT 13.3 10^3/ul (4.8-10.8)
[2019-02-21 15:20] LABS: ANION GAP 12 (5-13); BLOOD UREA NITROGEN 13 mg/dl (7-20); CALCIUM 10.1 mg/dl (8.4-10.2); CARBON DIOXIDE 29 mmol/L (21-31); CHLORIDE 99 mmol/L (97-110); CREATININE 0.78 mg/dl (0.61-1.24); Estimated GFR > 60 mL/min (>60); GLUCOSE 154 mg/dl (70-220); POTASSIUM 3.3 mmol/L (3.5-5.1); SODIUM 140 mmol/L (135-144)
[2019-02-22] MEDS: ACCUCHECK AT 2AM (Patients on SS coverage) XX (02:00)
[2019-02-22 05:40] LABS: ADD MAN DIFF? NO
[2019-02-22 05:50] LABS: WHITE BLOOD COUNT 10.1 10^3/ul (4.8-10.8)
[2019-02-22 05:50] LABS: BASOPHIL # 0.1 10^3/ul (0.0-0.1); BASOPHILS % 1.2 % (0.0-2.0); EOSINOPHILS # 0.6 10^3/ul (0.0-0.5); EOSINOPHILS % 5.6 % (0.0-7.0); HEMATOCRIT 41.2 % (42.0-52.0); LYMPHOCYTES # 3.3 10^3/ul (0.8-2.9); LYMPHOCYTES % 32.1 % (15.0-51.0); MEAN CORPUSCULAR HEMOGLOBIN 29.3 pg (29.0-33.0); MEAN CORPUSCULAR VOLUME 86.2 fl (82.0-101.0); MEAN PLATELET VOLUME 9.7 fl (7.4-10.4); MONOCYTE # 0.6 10^3/ul (0.3-0.9); MONOCYTES % 5.5 % (0.0-11.0); NEUTROPHIL # 5.4 10^3/ul (1.6-7.5); NEUTROPHILS % 53.3 % (39.0-77.0); PLATELET COUNT 403 10^3/UL (140-415); RED BLOOD COUNT 4.78 10^6/ul (4.70-6.10)
[2019-02-22 06:19] LABS: ANION GAP 12 (5-13); BLOOD UREA NITROGEN 12 mg/dl (7-20); CALCIUM 9.8 mg/dl (8.4-10.2); CARBON DIOXIDE 28 mmol/L (21-31); CHLORIDE 99 mmol/L (97-110); CREATININE 0.65 mg/dl (0.61-1.24); Estimated GFR > 60 mL/min (>60); GLUCOSE 123 mg/dl (70-220); POTASSIUM 3.4 mmol/L (3.5-5.1); SODIUM 139 mmol/L (135-144)
[2019-02-22] MEDS: INSULIN ASPART [NOVOLOG] 3 ML PEN SC ×4 (07:50→20:48)
[2019-02-22] MEDS: IOHEXOL 300MG/ML 150 ML BTL ×2 (14:16)
[2019-02-22] MEDS: HYDROCODONE/APAP (5/325) TAB PO (18:43)
[2019-02-23] MEDS: ACCUCHECK AT 2AM (Patients on SS coverage) XX (02:00)
[2019-02-23] MEDS: HYDROCODONE/APAP (5/325) TAB PO (04:43)
[2019-02-23] MEDS: INSULIN ASPART [NOVOLOG] 3 ML PEN SC ×2 (07:50→13:05)
== END 2019-02-23 15:02 | disposition home or self-care (01) | DRG 330 ==
LOC: REC 10:07 → MS1 18:02
PROC: 0TBB0ZZ Excision of Bladder, Open Approach (ICD-10-PCS; principal; 2019-02-13 13:00)
PROC: 0DBG0ZZ Excision of Left Large Intestine, Open Approach (ICD-10-PCS; 2019-02-13 13:00)
PROC: 0TQB0ZZ Repair Bladder, Open Approach (ICD-10-PCS; 2019-02-13 13:00)
PROC: 0WQF0ZZ Repair Abdominal Wall, Open Approach (ICD-10-PCS; 2019-02-13 13:00)
PROC: 0DJD8ZZ Inspection of Lower Intestinal Tract, Via Natural or Artificial Opening Endoscopic (ICD-10-PCS; 2019-02-13 13:00)
DX: K91.89 Other postprocedural complications and disorders of digestive system (principal); N32.1 Vesicointestinal fistula; K57.32 Diverticulitis of large intestine without perforation or abscess without bleeding; Z68.41 Body mass index [BMI] 40.0-44.9, adult; Z90.49 Acquired absence of other specified parts of digestive tract; K43.2 Incisional hernia without obstruction or gangrene; E66.01 Morbid (severe) obesity due to excess calories
CPT/HCPCS: 74430; 80048; 80053; 82962; 83036; 85025; 85610; 85730; 87086; 88307